=== PATIENT | male | born 1980 | race Caucasian/White ===

== ENCOUNTER 2024-06-30 19:11 | Emergency (ER) | payer OTHER, SELFPAY ==
[2024-06-30 19:11] VITALS: BMI 43.2
[2024-06-30 19:13] VITALS: BP 208/119
[2024-06-30 19:41] LABS: Hematocrit 45.2 % (39.0-52.0); Hemoglobin 15.4 g/dL (13.0-18.0); Mean Corp Hgb Conc. 34.1 g/dL (33.0-37.0); Mean Corpuscular Hgb 27.9 pg (27.0-31.0); Mean Corpuscular Volume 81.9 fL (80.0-94.0); Mean Platelet Volume 9.2 fL (7.4-10.4); Platelet Count 288 10^3/uL (130-400); Red Blood Cell Count 5.52 10^6/uL (4.70-6.10); Red Cell Dist. Width 13.5 % (11.5-14.5); White Blood Cell Count 12.2 10^3/uL (4.8-10.8)
[2024-06-30 19:44] LABS: ALT (SGPT) 70 U/L (0-50); AST (SGOT) 43 U/L (17-59); Albumin 4.3 g/dl (3.5-5.0); Alkaline Phosphatase 97 U/L (38-126); Blood Urea Nitrogen 17 mg/dl (9-20); Calcium 9.7 mg/dl (8.4-10.2); Carbon Dioxide 30 mmol/L (22-30); Chloride 104 mmol/L (98-107); Glucose 101 mg/dl (70-99); Potassium 4.2 mmol/L (3.5-5.1); Sodium 142 mmol/L (135-145); Total Bilirubin 0.8 mg/dl (0.2-1.3); Total Protein 7.6 g/dl (6.3-8.2); eGFR > 60.00
[2024-06-30 19:55] LABS: Urine Albumin 2+ (Neg - Trace); Urine Bilirubin Negative (Negative); Urine Character Clear (Clear); Urine Color Yellow; Urine Glucose Negative (Negative); Urine Ketone Negative (Negative); Urine Leukocyte 2+ (Negative); Urine Nitrite Negative (Negative); Urine Occult Blood 4+ (Negative); Urine Urobilinogen Negative (Neg - 1+)
[2024-06-30 20:08] LABS: Urine Bacteria Few (Negative); Urine Red Blood Cell >100 /HPF (0-2); Urine Squamous Cell 16-20 /LPF (Few)
[2024-06-30 20:21] LABS: % Basophils 0.7 % (0-2); % Immature Granulocytes 0.3 % (0-0.5); % Monocytes 6.6 % (1.7-9.3); % Neutrophils 51.4 % (42.2-75.2); Absolute Basophils 0.1 10^3/uL (0-0.2); Absolute Eosinophils 0.4 10^3/uL (0-0.7); Absolute Lymphocytes 4.6 10^3/uL (1.2-3.4); Absolute Monocytes 0.8 10^3/uL (0.1-0.6); Absolute Neutrophils 6.3 10^3/uL (1.4-6.5); Nucleated Red Blood Cells % 0 % (-)
--- NOTE | 2024-06-30 20:39 | ED.GENMED ---
History of Present Illness
General
Chief Complaint: Abdominal Pain
Source: patient
Exam Limitations: none
Time Seen by Provider: 06/30/24 20:25
Nursing documentation reviewed up to this point in time: agreed with
History of Present Illness
History of Present Illness:
Patient with history of kidney stones, presents ED secondary to recurrent left flank/groin pain starting this afternoon, along with nausea and vomiting. However, patient does report sensation of frequency and urgency over the past 1 week.
Patient's last episode of kidney stone was 3 years ago. Denies fever or chills. Denies trauma. Denies inability to urinate. Denies abdominal pain.
Past History
Past History
ED Past Medical History: Other (Kidney stones)
ED Past Surgical History: Other (Kidney stone removal)
Social History
Tobacco: Non-smoker
Alcohol: None
Drug: None
Review of Systems
Review of Systems
Allergies reviewed?: Yes
All Other Systems: ROS reviewed and negative except as documented in HPI and ROS
Constitutional: Reports no symptoms; Denies fever
Respiratory: Reports no symptoms
Cardiac: Reports no symptoms
: Reports frequency, flank pain and urgency
Musculoskeletal: Reports no symptoms
Skin: Reports no symptoms
Neurological: Reports no symptoms
Phy Exam
Physical Exam
Physical Exam:
Physical Exam
General: moderate painful distress, not acutely ill. afebrile
Head: nc/at. eomi
Neck: supple. normal range of motion.
Abdomen: normal bowel sounds. not tender.
Neuro: alert and oriented x 3. no focal neurological deficits
Skin: no rash
Psychiatric: well kept. interactive and cooperative
Extremities: no edema. no calf tenderness.
Course
Orders/Labs/Results
Orders:
Orders
06/30/24 19:21
Complete Blood Count/With Diff Urgent
Urinalysis Reflex To Culture Urgent
Date Specimen was Collected: 06/30/24
Time Specimen was Collected: 19:16
Urine Microscopic Reflex Cult Urgent
Urine Culture Urgent
VELASQUEZ Source: U
Specimen Description:
Date Specimen was Collected: 06/30/24
Time Specimen was Collected: 19:16
06/30/24 19:22
Comprehensive Metabolic Panel Urgent
06/30/24 20:31
0.9% Sodium Chloride 500 ml [Nss] 500 ml IV BOLUS
HYDROmorphone [Dilaudid] 0.5 mg IV NOW STA
Ketorolac [Toradol] 15 mg IV NOW STA
Ondansetron Injectable [Zofran] 4 mg IV NOW STA
06/30/24 21:23
CT Abd/pel Without Iv Or Oral Urgent
Comment:
Reason For Exam: left flank pain w hx kidney stones
07/01/24 00:05
Ketorolac [Toradol] 15 mg IV NOW STA
Abnormal Lab Results
06/30/24 06/30/24
19:21 19:22
WBC 12.2 H 10^3/uL
(4.8-10.8)
Absolute Lymphs (auto) 4.6 H 10^3/uL
(1.2-3.4)
Absolute Monos (auto) 0.8 H 10^3/uL
(0.1-0.6)
Glucose 101 H mg/dl
(70-99)
ALT 70 H U/L
(0-50)
Ur Occult Blood Reflex 4+ A
(Negative)
Leukocyte Esterase Rfl 2+ A
(Negative)
Urine RBC >100 A /HPF
(0-2)
Urine Bacteria (Reflex) Few A
(Negative)
Urine Albumin (Reflex) 2+ A
(Neg - Trace)
06/30/24 19:21
06/30/24 19:22
Vital Signs
Initial and Last Documented VS:
Initial Vital Signs
Temp Pulse Resp BP Pulse Ox
98.0 F 94 18 208/119 99
06/30/24 19:13 06/30/24 19:13 06/30/24 19:13 06/30/24 19:13 06/30/24 19:13
Last Documented Vital Signs
Temp Pulse Resp BP Pulse Ox
98.0 F 94 18 131/81 98
06/30/24 19:13 06/30/24 19:13 06/30/24 19:13 07/01/24 01:37 06/30/24 22:52
MDM/Problems Addressed
MDM/Problems Addressed:
History, exam, and CT scan consistent with renal colic, secondary to obstructing 4 mm stone. Patient otherwise remains afebrile, hemodynamically stable, and able to void freely, along with normal kidney function. As such, patient will be
discharged home in stable condition, with recommendation to follow-up with his urologist, Dr. Angelo, as an outpatient, with return precautions provided.
*Critical Care Note
Total Time (30-74mins, 75-104mins- exclusive of procedures): Not Applicable
ED Attending Note
-
Portions of this chart may have been created with voice recognition software.� Occasional wrong word or��sound alike� substitutions may have occurred due to the inherent limitations of voice recognition software.
Discharge Plan
Departure
Patient Disposition: Home (Routine Discharge)
Date of Disposition: 06/30/24
Time of Disposition: 23:40
Patient with high blood pressure during this ER visit?: Yes
Condition: Fair
Discharge Problem:
Renal colic
Instructions: Renal Colic (DC)
Prescriptions:
New
oxycodone-acetaminophen [Percocet] 5-325 mg Tablet
1 tab PO Q6HPRN PRN (Reason: pain) Qty: 12 0RF
tamsulosin [Flomax] 0.4 mg Capsule
0.4 mg PO DAILY Qty: 7 0RF
ondansetron 4 mg Tablet,Disintegrating
4 mg PO TIDPRN PRN (Reason: nausea/vomiting) Qty: 12 0RF
ketorolac 10 mg tablet
10 mg PO Q8H PRN (Reason: Pain) Qty: 14 0RF
Rx Instructions:
maximum total duration of 5 days from all oral, intranasal, or parenteral formulations
No Action
atorvastatin 40 MG tablet
40 mg PO DAILY
lisinopril 20 MG tablet
20 mg PO DAILY
fremanezumab-vfrm [Ajovy Autoinjector] 225 MG/1.5 ML auto-injector
225 mg SC MONTHLY
tamsulosin 0.4 MG capsule
0.4 mg PO DAILY Qty: 30 3RF
amoxicillin 500 MG capsule
500 mg PO Q8 7 Days Qty: 21 0RF
phenazopyridine 100 MG tablet
100 mg PO Q8 Qty: 90 0RF
oxycodone-acetaminophen 5 MG/325 MG tablet
1 tab PO Q6HPRN PRN (Reason: severe pain) Qty: 30 0RF
tramadol 50 MG tablet
50 mg PO Q8 PRN (Reason: mild to moderate pain) Qty: 30 0RF
polyethylene glycol 3350 17 GRAMS powder in packet
17 grams PO DAILY Qty: 31 0RF
Referrals:
Antonio Angelo Jr., MD [Active] -
Caleb Chavez DO [Family Provider] -
Stand Alone Forms: Return to Work
Activity Restrictions/Additional Instructions:
As discussed, please follow-up with your urologist for further evaluation and treatment. Please consider returning to ED with worsening symptoms, i.e. fever/worsening pain/inability to urinate. Your prescriptions have been sent electronically [facility] in [place].
Interventions
Interventions:
*Risk Screen - Suicide Last Done: 06/30/24 19:15
*General Assessment Last Done: 06/30/24 19:15
*Neglect/Abuse Screening Last Done: 06/30/24 19:15
*ED- Fall Risk Assessment Last Done: 06/30/24 19:15
*ED COVID-19 Vaccine History Last Done: 06/30/24 19:15
*Nursing Disposition Last Done: 07/01/24 01:45
CN-Ggtie[facility]-Ixqobajldz Assessment Last Done: 06/30/24 20:53
Discharge Date and Time
Discharge Date/Time: 07/01/24 01:46
Print Language: YI
[2024-06-30] MEDS: ZOFRAN 4 MG IV (20:47)
[2024-06-30] MEDS: TORADOL 15 MG IV (20:48)
[2024-06-30] MEDS: NSS 500 IV (20:49)
[2024-06-30] MEDS: DILAUDID 0.5 MG IV (21:44)
[2024-06-30 22:00] VITALS: BP 164/101
[2024-07-01] MEDS: TORADOL 15 MG IV (00:08)
[2024-07-01 01:37] VITALS: BP 131/81
== END 2024-07-01 01:46 | disposition home or self-care (01) ==
LOC: EMR 19:11
PROVIDERS: Student in an Organized Health Care Education/Training Program; EMERGENCY PHYSICIAN Emergency Medicine; FAMILY PHYSICIAN Family Medicine
DX: R10.30 Lower abdominal pain, unspecified (principal)
CPT/HCPCS: 99284; 96374; 96375; 96376; 96361; 74176; 80053; 81003; 81015; 85025; 87086

== ENCOUNTER → 2025-03-16 06:49 | Outpatient (REF) | payer OTHER, SELFPAY | LOC: RAD 06:49 | PROVIDERS: ATTENDING PHYSICIAN Specialist; FAMILY PHYSICIAN Family Medicine | DX: N20.1 Calculus of ureter (principal) | CPT/HCPCS: 76770 ==